=== PATIENT | female | born 1980 | race African-American/Black ===

== ENCOUNTER 2017-12-29 19:27 | Emergency (ER) | payer BC ==
[~2017-12-29] VITALS: Ht 162.6 cm; Wt 72.6 kg
[~2017-12-29 19:27] MED LIST: ADIPEX-P37.5 MG PO; APAP/CODEINE ELI5 M1 OR; CARISOPRODOL 3350 MG PO; IBUPROFEN 600600 M1 PO; JANUVIA100 MG PO; LEVONORGESTREL1.5 MG PO; LEXAPRO20 MG PO; NAPROSYN500 MG PO; NORCO 5-325 TA1 EACH PO; TRAMADOL 50 MG50 MG PO; XANAX 0.25 MG0.25 MG PO; ZPAK PO
[2017-12-29] MEDS ORDERED: METFORMIN HCL500 MG PO (19:45)
[2017-12-29] MEDS ORDERED: [UNRECOGNIZED DRUG - OTHER] SUBQ (19:46)
[2017-12-29] MEDS ORDERED: HYDROCODONE-AP1 EAC6 PO (22:32)
[2017-12-29] MEDS ORDERED: MOBIC7.5 MG PO (22:36)
[2017-12-29 23:47] VITALS: BP 116/80
== END 2017-12-29 23:00 | disposition home or self-care (01) ==
LOC: ER 19:27
DX: S62.501A Fracture of unspecified phalanx of right thumb, initial encounter for closed fracture (principal); M25.511 Pain in right shoulder; E11.9 Type 2 diabetes mellitus without complications; V89.0XXA Person injured in unspecified motor-vehicle accident, nontraffic, initial encounter; Y93.89 Activity, other specified; Y92.89 Other specified places as the place of occurrence of the external cause; Y99.8 Other external cause status

== ENCOUNTER 2020-03-20 00:32 | Emergency (ER) | payer OTHER ==
[~2020-03-20] VITALS: Ht 162.6 cm; Wt 59.0 kg
[~2020-03-20 00:32] MED LIST changes: +HYDROCODONE-AP1 EAC6 PO; +METFORMIN HCL500 MG PO; +MOBIC7.5 MG PO; +[UNRECOGNIZED DRUG - OTHER] SUBQ
[2020-03-20 01:24] LABS: URINE BILIRUBIN NEGATIVE (Negative); URINE BLOOD 3+ (Negative); URINE CLARITY SL CLOUDY; URINE COLOR YELLOW; URINE GLUCOSE-RANDOM* 1+ (Negative); URINE KETONES NEGATIVE (Negative); URINE LEUKOCYTES-REFLEX NEGATIVE (Negative); URINE NITRITE-REFLEX NEGATIVE (Negative); URINE PROTEIN (DIPSTICK) NEGATIVE (Negative); URINE SPECIFIC GRAVITY 1.025 (1.005-1.035)
[2020-03-20 01:34] LABS: ABSOLUTE NEUTROPHILS 3.5 thou/uL (1.4-8.2); BASOPHILS 0.8 % (0.0-2.0); EOSINOPHILS 1.7 % (0.0-3.0); HEMATOCRIT 36.7 % (37.0-47.0); HEMOGLOBIN 12.3 gm/dL (12.0-15.0); LYMPHOCYTES 34.1 % (24.0-44.0); MCH 29.8 pg (26.0-34.0); MCHC 33.5 g/dL (28.0-37.0); MCV 89.1 fL (80.0-100.0); MONOCYTES 8.5 % (1.0-8.0); PLATELET COUNT 319 thou/uL (150-400); POLYS 54.9 % (36.0-66.0); RBC 4.12 mil/uL (4.20-5.00); WBC 6.3 thou/uL (4.0-11.0)
[2020-03-20 01:35] LABS: CALCIUM 8.8 mg/dL (8.5-10.1); CREATININE 0.9 mg/dL (0.6-1.0); POTASSIUM 3.3 mmol/L (3.5-5.1)
[2020-03-20 01:41] LABS: ALBUMIN 3.1 g/dL (3.4-5.0); TOTAL BILIRUBIN 0.1 mg/dL (0.2-1.0)
[2020-03-20 02:05] LABS: BACTERIA-REFLEX 1-9 Few /HPF (None Seen); CASTS None Seen /LPF (None Seen); CRYSTALS None Seen /LPF (None Seen); MUCUS 4-6 Moderate strn/LPF (None Seen); SQUAMOUS 4-10 Moderate /LPF (0-3); URINE WBC-REFLEX 0-5 Rare /HPF (0-5)
[2020-03-20] MEDS ORDERED: FIORINAL 50-321 EACH PO (02:48)
[2020-03-20] MEDS ORDERED: PEPCID20 MG PO (02:48)
[2020-03-20] MEDS ORDERED: ZOFRAN ODT4 MG PO (02:48)
[2020-03-20 03:05] VITALS: BP 116/78
== END 2020-03-20 03:06 | disposition home or self-care (01) ==
LOC: ER 00:32
PROVIDERS: Emergency Medicine
DX: U07.1 COVID-19 (principal); R35.0 Frequency of micturition; M54.5 Low back pain; E11.9 Type 2 diabetes mellitus without complications; F41.9 Anxiety disorder, unspecified; Z79.899 Other long term (current) drug therapy